=== PATIENT | female | born 1965 | race Caucasian/White ===

== ENCOUNTER 2017-11-06 13:16 | Emergency (ER) | payer MEDICAID ==
[~2017-11-06] VITALS: Ht 172.7 cm; Wt 80.4 kg
[2017-11-06 14:22] LABS: CULTURE INDICATED? YES; MICROSCOPIC INDICATED
[2017-11-06] MEDS ORDERED: SODIUM CHLORIDE 0.9% 1,000ML IVBOLUS ONE (14:30)
[2017-11-06] MEDS ORDERED: KETOROLAC 30 MG/1 ML IVPush ONE (14:30)
[2017-11-06] MEDS ORDERED: CEFTRIAXONE PMX 1GM/50ML 50 ML IVPB ONE (14:30)
[2017-11-06] MEDS ORDERED: ACETAMINOPHEN 500 MG TABLET PO ONE (14:30)
[2017-11-06] MEDS ORDERED: SODIUM CHLORIDE FLUSH 10ML SYR IVF ONE (14:30)
[2017-11-06] MEDS ORDERED: KETOROLAC 30 MG/1 ML ONE (14:46)
[2017-11-06] MEDS ORDERED: CEFTRIAXONE PMX 1GM/50ML 50 ML ONE (14:46)
[2017-11-06] MEDS ORDERED: ACETAMINOPHEN 500 MG TABLET ONE (14:47)
[2017-11-06 14:57] LABS: BASOPHILS # (AUTO) 0.01 x10^3/uL (0-0.1); BASOPHILS % (AUTO) 0 % (0-1); EOSINOPHILS # (AUTO) 0.02 x10^3/uL (0-0.4); EOSINOPHILS % (AUTO) 0 % (1-7); LYMPHOCYTES % (AUTO) 15 % (22-44); MD NO; MEAN CORPUSCULAR HEMOGLOBIN 28.2 pg (27.0-34.8); MEAN CORPUSCULAR HGB CONC 33.2 g/dL (32.4-35.8); MEAN CORPUSCULAR VOLUME 85.1 fL (80-100); MEAN PLATELET VOLUME 7.7 fL (7.4-10.4); MONOCYTES # (AUTO) 1.06 x10^3/uL (0.2-0.8); MONOCYTES % (AUTO) 12 % (2-9); NEUTROPHILS # (AUTO) 6.46 x10^3/uL (1.8-6.8); NEUTROPHILS % (AUTO) 73 % (42-75); PLATELET COUNT 184 x10^3/uL (130-400); RED BLOOD COUNT 4.31 x10^6/uL (3.82-5.3); RED CELL DISTRIBUTION WIDTH 13.5 % (9.6-15.2)
[2017-11-06 15:05] LABS: ANION GAP 11 mmol/L (5-15); CALCIUM 8.9 mg/dL (8.5-10.1); CHLORIDE 108 mmol/L (98-107)
[2017-11-06 15:06] LABS: CREATININE 0.77 mg/dL (0.55-1.02)
[2017-11-06 15:38] VITALS: BP 101/50
== END 2017-11-06 15:48 | disposition home or self-care (01) ==
LOC: ED 15:35
DX: N10 Acute pyelonephritis (principal)
CPT/HCPCS: 36415; 80048; 81001; 82040; 85025; 87077; 87086; 96365; 96375; 99284; J0696; J1885; J7030; 87186

== ENCOUNTER 2020-08-08 12:21 | Emergency (ER) | payer MEDICAID ==
[~2020-08-08] VITALS: Ht 172.7 cm; Wt 84.4 kg
[2020-08-08 12:27] VITALS: BP 126/78
--- NOTE | 2020-08-08 13:04 | NUR ---
PT FEET SOAKING IN WARM WATER AT THIS TIME
== END 2020-08-08 13:46 | disposition home or self-care (01) ==
LOC: ED 12:49
DX: T69.021A Immersion foot, right foot, initial encounter (principal); B35.3 Tinea pedis; R20.8 Other disturbances of skin sensation; F17.200 Nicotine dependence, unspecified, uncomplicated; Z98.51 Tubal ligation status; Z59.0 Homelessness; X31.XXXA Exposure to excessive natural cold, initial encounter; Y93.89 Activity, other specified; Y92.89 Other specified places as the place of occurrence of the external cause; Y99.8 Other external cause status
CPT/HCPCS: 99282